=== PATIENT | male | born 1995 | race Caucasian/White ===

== ENCOUNTER 2017-11-09 09:05 | Emergency (ER) | payer MEDICAID, OTHER ==
[~2017-11-09] VITALS: Ht 167.6 cm; Wt 90.7 kg
[2017-11-09 09:14] VITALS: BP 135/85
--- NOTE | 2017-11-09 09:14 | NUR ---
PATIENT BIBA FOR ALTERED MENTAL STATUS; PATIENT DENIES MEDICAL HX, DENIES ALLERGIES. PATIETN STRIPPED OF CLOTHING AND PERSONAL BELONGINGS. PATIENT COMPLAINS OF BILATERAL FOOT PAIN. UPON EXAMINATION, BLISTERS FOUND ON BILATERAL BALL OF FEET. DENIES N/V/D; SKIN IS PINK/WARM/DRY; AAOX3 WITH UNSTEADY GAIT; LUNGS CLEAR BL; HR EVEN AND REGULAR; PT DENIES ANY FEVER, CP, SOB, OR COUGH AT THIS TIME; PATIENT STATES PAIN OF 6/10 AT THIS TIME; VSS; PATIENT POSITIONED FOR COMFORT; HOB ELEVATED; BEDRAILS UP X2; BED DOWN. ER MD MADE AWARE OF PT STATUS.
--- NOTE | 2017-11-09 09:15 | NUR ---
[place] [facility] PLACED PATIENT ON A 72HR HOLD. OFFICER Nayana GARCIA/SEN NUMBER [phone]. TIME OF HOLD 0845.
[2017-11-09 09:27] LABS: BASOPHILS % (AUTO) 0.5 % (0.0-2.0); EOSINOPHILS # (AUTO) 0.2 K/uL (0-0.4); EOSINOPHILS % (AUTO) 3.4 % (0.0-4.0); HEMATOCRIT 49.1 % (36-52); HEMOGLOBIN 16.6 g/dL (12.0-18.0); LYMPHOCYTES # (AUTO) 1.6 K/uL (2.0-11.5); LYMPHOCYTES % (AUTO) 27.6 % (20.5-51.1); MEAN CORPUSCULAR HEMOGLOBIN 29 pg (27-31); MEAN CORPUSCULAR HGB CONC 34 g/dL (33-37); MONOCYTES # (AUTO) 0.8 K/uL (0.8-1.0); MONOCYTES % (AUTO) 14.4 % (1.7-9.3); NEUTROPHILS # (AUTO) 3.2 K/uL (1.8-7.7); NEUTROPHILS % (AUTO) 54.1 % (42.2-75.2); PLATELET COUNT (AUTO) 211 K/uL (140-450); RED BLOOD CELL COUNT(AUTO) 5.65 MIL/uL (4.20-6.10); RED CELL DISTRIBUTION WIDTH 13.8 % (11.6-13.7); WHITE BLOOD COUNT (AUTO) 5.8 K/uL (4.8-10.8)
[2017-11-09 09:45] LABS: ALBUMIN 4.1 g/dL (3.4-5.0); ANION GAP 8.8 (8-16); ASPARTATE AMINOTRANSFERASE 55 U/L (15-37); CARBON DIOXIDE 27.3 mmol/L (21-32); CHLORIDE 99 mmol/L (98-107); CREATININE 1.1 mg/dL (0.7-1.3); GFR ARICAN-AMERICAN 109 mL/min (>90); GLUCOSE 95 mg/dL (74-106); POTASSIUM 3.1 mmol/L (3.5-5.1); SODIUM SERUM 132 mmol/L (136-145); UREA NITROGEN, BLOOD 11 mg/dL (7-18)
[2017-11-09 09:48] LABS: ACETAMINOPHEN < 0.5 ug/ml (10-30); SALICYLATE < 2.8 mg/dL (2.8-20.0)
--- NOTE | 2017-11-09 09:51 | NUR ---
BREAKFAST ORDER CALLED IN.
[2017-11-09 10:11] LABS: BILIRUBIN,URINE 2+ (NEGATIVE); BLOOD, URINE NEGATIVE (NEGATIVE); COLOR,URINE YELLOW (YELLOW); LEUKOCYTE ESTERASE ,URINE NEGATIVE (NEGATIVE); NITRITE, URINE NEGATIVE (NEGATIVE); PH,URINE 6.5 (5.0-9.0); UGLUCOSE NEGATIVE (NEGATIVE)
[2017-11-09 10:18] LABS: BARBITURATE, URINE NEG. ng/ml (NEG <=200); BENZODIAZEPINE, URINE NEG. ng/mL (NEG <=200); CANNABINOID, URINE POS. ng/mL (NEG <=50); COCAINE, URINE NEG. ng/mL (NEG <=300); OPIATE, URINE NEG. ng/mL (NEG <=2000); PHENCYCLIDINE SCREEN,URINE NEG. ng/mL (NEG <=25)
[2017-11-09 10:24] LABS: APPEARANCE,URINE SLIGHTLY HAZY (CLEAR)
[2017-11-09 10:25] LABS: RBC,URINE NONE SEEN /HPF (0-5); WBC,URINE 0-5 (RARE) /HPF (0-5)
[2017-11-09 10:26] LABS: URINE AMORPHOUS URATE 1+ /HPF (None Seen)
--- NOTE | 2017-11-09 10:36 | NUR ---
PATIENT SITTING UP IN BED; ATE 50% FOOD TRAY. APPEARS TO BE EASILY DISTRACTED.
--- NOTE | 2017-11-09 11:16 | NUR ---
Called [facility] and spoke with Emily. Possible beds available, will fax packet.
--- NOTE | 2017-11-09 12:32 | NUR ---
Called [facility] and spoke with Meredith. No beds at this time. Will fax packet to put patient on the wait list.
--- NOTE | 2017-11-09 12:34 | NUR ---
Called [facility] and spoke with [facility] Specialist. No beds at this time.
--- NOTE | 2017-11-09 12:42 | NUR ---
Called [facility] and spoke with Theodore. Possible beds, will fax packet.
--- NOTE | 2017-11-09 12:55 | NUR ---
PATIENT RESTING COMFORTABLY IN BED, X1 BEDRAIL UP.
--- NOTE | 2017-11-09 13:00 | NUR ---
Called [facility] and spoke with Berto. No beds available at this time.
--- NOTE | 2017-11-09 16:45 | NUR ---
Patient discharged with v/s stable. Written and verbal after care instructions given and explained. RIAZ STATED HE DID NOT NEED A BUS PASS AND WILL BE GOING DOWN THE STREET. Patient verbalized understanding. Ambulatory with steady gait. All questions addressed prior to discharge. Advised to follow up with PMD.
[2017-11-09 16:49] VITALS: BP 109/63
== END 2017-11-09 16:45 | disposition home or self-care (01) ==
LOC: MED 09:05
DX: F12.10 Cannabis abuse, uncomplicated (principal); Z59.0 Homelessness; Z88.0 Allergy status to penicillin
CPT/HCPCS: 36415; 80053; 80305; 81001; 85025; 99285; G0480; G0482

== ENCOUNTER 2018-05-12 21:09 | Emergency (ER) | payer OTHER ==
[~2018-05-12] VITALS: Ht 177.8 cm; Wt 86.2 kg
[2018-05-12 21:21] VITALS: BP 103/74
[2018-05-12 22:01] LABS: BASOPHILS # (AUTO) 0.1 K/uL (0.00-0.22); BASOPHILS % (AUTO) 0.6 % (0.0-2.0); EOSINOPHILS # (AUTO) 0.1 K/uL (0-0.4); EOSINOPHILS % (AUTO) 1.1 % (0.0-4.0); HEMATOCRIT 51.6 % (36-52); HEMOGLOBIN 17.3 g/dL (12.0-18.0); LYMPHOCYTES # (AUTO) 2.2 K/uL (2.0-11.5); LYMPHOCYTES % (AUTO) 19.9 % (20.5-51.1); MEAN CORPUSCULAR HEMOGLOBIN 29 pg (27-31); MEAN CORPUSCULAR HGB CONC 34 g/dL (33-37); MEAN CORPUSCULAR VOLUME 87.1 fL (80-94); MONOCYTES # (AUTO) 0.6 K/uL (0.8-1.0); MONOCYTES % (AUTO) 5.5 % (1.7-9.3); NEUTROPHILS % (AUTO) 72.9 % (42.2-75.2); PLATELET COUNT (AUTO) 192 K/uL (140-450); RED BLOOD CELL COUNT(AUTO) 5.93 MIL/uL (4.20-6.10); RED CELL DISTRIBUTION WIDTH 14.7 % (11.6-13.7)
[2018-05-12 22:20] LABS: ALBUMIN 4.3 g/dL (3.4-5.0); CARBON DIOXIDE 31.8 mmol/L (21-32); CREATININE 1.1 mg/dL (0.7-1.3); POTASSIUM 3.8 mmol/L (3.5-5.1); TOTAL BILIRUBIN 0.5 mg/dL (0.0-1.0)
[2018-05-12 22:28] LABS: APPEARANCE,URINE CLEAR (CLEAR); BLOOD, URINE NEGATIVE (NEGATIVE); COLOR,URINE YELLOW (YELLOW); PH,URINE 6.5 (5.0-9.0); UGLUCOSE NEGATIVE (NEGATIVE)
[2018-05-12 22:29] LABS: BILIRUBIN,URINE NEGATIVE (NEGATIVE); LEUKOCYTE ESTERASE ,URINE NEGATIVE (NEGATIVE); NITRITE, URINE NEGATIVE (NEGATIVE)
[2018-05-13] MEDS ORDERED: NACL 0.9% 1,000 ML IV ONE (00:45)
[2018-05-13] MEDS ORDERED: KETOROLAC 30 MG/ML VIAL IVP ONE (00:45)
[2018-05-13 03:15] VITALS: BP 121/75
[2018-05-13] MEDS: CIPROFLOXACIN 250 MG TAB PO ONE ×2 (03:15→03:16)
== END 2018-05-13 03:15 | disposition home or self-care (01) ==
LOC: MED 21:09
DX: K52.9 Noninfective gastroenteritis and colitis, unspecified (principal); Z88.0 Allergy status to penicillin
CPT/HCPCS: 36415; 74176; 80053; 81003; 82150; 83690; 85025; 96361; 96374; 99285; J1885; J7030